=== PATIENT | male | born 1985 | race Caucasian/White ===

== ENCOUNTER 2018-10-18 22:13 | Emergency (ER) | payer OTHER ==
[2018-10-18 23:44] LABS: ABSOLUTE EOSINOPHILS # (AUTO) 0.1 10^3/uL (0.0-0.6); ABSOLUTE LYMPHOCYTES (AUTO) 2.9 10^3/uL (0.5-4.7); ABSOLUTE MONOCYTES (AUTO) 0.6 10^3/uL (0.1-1.4); ABSOLUTE NEUT (AUTO) 3.8 10^3/uL (1.7-8.2); BASOPHILS % (AUTO) 0.6 % (0-2); EOSINOPHILS % (AUTO) 1.5 % (0-6); HEMATOCRIT 45.8 % (37.9-51.0); LYMPHOCYTES % (AUTO) 39.2 % (13-45); MEAN CORPUSCULAR HEMOGLOBIN 29.1 pg (27.0-33.4); MEAN CORPUSCULAR VOLUME 83 fl (80-97); MONOCYTES % (AUTO) 7.4 % (3-13); PLATELET COUNT 277 10^3/uL (150-450); RED CELL DISTRIBUTION WIDTH 13.6 % (11.5-14.0); SEGMENTED NEUTROPHILS % (AUTO) 51.3 % (42-78); TOTAL CELLS COUNTED % (AUTO) 100 %; WHITE BLOOD COUNT 7.5 10^3/uL (4.0-10.5)
[2018-10-19 00:03] LABS: ALANINE AMINOTRANSFERASE 37 U/L (21-72); ALBUMIN 4.8 g/dL (3.5-5.0); ALKALINE PHOSPHATASE 57 U/L (38-126); ANION GAP 11 (5-19); ASPARTATE AMINO TRANSFERASE 23 U/L (17-59); BILIRUBIN,DIRECT 0.3 mg/dL (0.0-0.4); BILIRUBIN,TOTAL 0.4 mg/dL (0.2-1.3); BLOOD UREA NITROGEN 10 mg/dL (7-20); CALCIUM 9.8 mg/dL (8.4-10.2); CARBON DIOXIDE 30 mmol/L (22-30); CHLORIDE 102 mmol/L (98-107); GLUCOSE 110 mg/dL (75-110); POTASSIUM 3.3 mmol/L (3.6-5.0); SODIUM 143.3 mmol/L (137-145); TOTAL PROTEIN 7.8 g/dL (6.3-8.2)
[2018-10-19 00:07] LABS: APPEARANCE,URINE CLEAR; BILIRUBIN,URINE NEGATIVE (NEGATIVE); COLOR,URINE STRAW; GLUCOSE, URINE NEGATIVE (NEGATIVE); KETONES,URINE NEGATIVE (NEGATIVE); LEUKOCYTE ESTERASE,URINE NEGATIVE (NEGATIVE); NITRITE,URINE NEGATIVE (NEGATIVE); PROTEIN,URINE NEGATIVE (NEGATIVE); URINE SPECIFIC GRAVITY 1.004; UROBILINOGEN,URINE NEGATIVE mg/dL (<2.0)
--- NOTE | 2018-10-19 00:58 | ER Document Report ---
ED General - General Chief Complaint: Upper Abdominal Pain Stated Complaint: ABDOMINAL PAIN Time Seen by Provider: 10/19/18 00:41 TRAVEL OUTSIDE OF THE [place] IN LAST 30 DAYS: No - HPI Notes: Patient is a 33-year-old gentleman comes into the emergency department for evaluation of abdominal pain. He points to the right upper quadrant and epigastric region. He states is been present intermittently for about a year. This episode is been present for a few months. He states it waxes and wanes in intensity. It is always worsened with food. Nothing seems to make it better. He had nausea but no emesis. He is also had loose stool. He states a few weeks ago he had a fever for a day or 2, but has not had one since then. He is still urinating. He denies any dysuria, urinary frequency. - Related Data Allergies/Adverse Reactions: No Known Allergies Allergy (Unverified 10/18/18 22:16) Past Medical History - General Information source: Patient - Social History Smoking Status: Former Smoker Chew tobacco use (# tins/day): Yes Smoking Education Provided: Yes Frequency of alcohol use: None Drug Abuse: None Family History: CAD, DM, Hypertension Patient has suicidal ideation: No Patient has homicidal ideation: No Renal/ Medical History: Denies: Hx Peritoneal Dialysis Psychiatric Medical History: Reports: Hx Attention Deficit Hyperactivity Disorder, Hx Bipolar Disorder Past Surgical History: Reports: Hx Herniorrhaphy, Hx Orthopedic Surgery Review of Systems - Review of Systems Constitutional: See HPI EENT: No symptoms reported Cardiovascular: No symptoms reported Respiratory: No symptoms reported Gastrointestinal: See HPI Genitourinary: No symptoms reported Musculoskeletal: No symptoms reported Skin: No symptoms reported Neurological/Psychological: No symptoms reported Physical Exam - Vital signs Vitals: Temp Pulse Resp BP Pulse Ox 98.6 F 89 17 145/89 H 98 10/18/18 22:52 10/18/18 22:52 10/18/18 22:52 10/18/18 22:52 10/18/18 22:52 - Notes Notes: Vital signs reviewed, please refer to chart. Patient is normocephalic, atraumatic. Pupils equal round, reactive to light. Neck is supple without meningismus. Heart is regular rate and rhythm. Lungs are clear to auscultation bilaterally. Abdomen is soft, mild right upper quadrant and epigastric tenderness to palpation without rebound or guarding. Normoactive bowel sounds throughout. Extremities without cyanosis, clubbing, edema. Peripheral pulses are equal. Skin is warm and dry. Patient is awake, alert, neurological exam is nonfocal. Course - Re-evaluation Re-evalutation: 10/19/18 01:00 Patient presents to the emergency department for evaluation. He has had this pain off and on for a year. He has no fever. He has no leukocytosis. His laboratory investigations are entirely unremarkable. Despite being on omeprazole, he has never seen gastroenterology. I strongly urged this patient to seek out referral. He states he has an appointment later on this month with his primary care physician at the [facility]. He states he is seeking out evaluation of his gallbladder as well as the stomach. I encouraged him to do so. At this point he is stable. He is showing no signs of acute cholecystitis, no signs of bleeding ulcer. He is encouraged to keep a food diary, evaluate how certain foods affect his pain. He is amenable to this plan. He is to follow-up with the [facility], return to the ED with worsening or new concerning symptoms of any sort. - Vital Signs Vital signs: Temp Pulse Resp BP Pulse Ox 98.6 F 89 17 145/89 H 98 10/18/18 22:52 10/18/18 22:52 10/18/18 22:52 10/18/18 22:52 10/18/18 22:52 - Laboratory Result Diagrams: 10/18/18 23:30 10/18/18 23:30 Laboratory results interpreted by me: 10/18/18 23:30 Potassium 3.3 L Discharge - Discharge Clinical Impression: Right upper quadrant abdominal pain Condition: Stable Disposition: HOME, SELF-CARE Instructions: Abdominal Pain ([facility]) Additional Instructions: You need further evaluation for abdominal pain. You should be evaluated by a primer assembler with endoscopy. You should also be evaluated with a right upper quadrant ultrasound to evaluate for gallbladder disease. Keep a food diary as discussed. Keep notes on how certain foods affect her pain. If you develop fevers, vomiting, or worsening or new concerning symptoms of any sort, return immediately to the emergency department for reevaluation.
[2018-10-19 01:28] VITALS: BP 142/90
== END 2018-10-19 01:28 | disposition home or self-care (01) ==
LOC: ER 22:13
DX: R10.11 Right upper quadrant pain (principal); R10.13 Epigastric pain; R11.0 Nausea; R19.7 Diarrhea, unspecified; Z87.891 Personal history of nicotine dependence
CPT/HCPCS: 36415; 80053; 81001; 83690; 85025; 99284

== ENCOUNTER 2018-10-22 14:15 | Emergency (ER) | payer OTHER ==
--- NOTE | 2018-10-22 14:34 | ER Document Report ---
ED Medical Screen (RME) - General Chief Complaint: Accidental Overdose Stated Complaint: POSSIBLE OVERDOSE Time Seen by Provider: 10/22/18 14:27 Primary Care Provider: JOSEMANUEL MARIE DO [Primary Care Provider] - Follow up as needed TRAVEL OUTSIDE OF THE [place] IN LAST 30 DAYS: No - HPI Notes: 10/22/18 14:31 Patient is a 33-year-old male who presents emergency department with concern of possibly taking an extra dose of his Wellbutrin and carbamazepine today. He believes he may have taken his morning dose as well as taking a dose again at 12 PM. Patient states that he is currently asymptomatic and is feeling well. No concerns or complaints otherwise. He did call poison control who directed him to the emergency department. Our charge nurse also spoke with poison control and has recommendations to follow. Denies FULTON, fever, neck pain, URI, CP, palpitations, syncope, SOB, Abd pain, or rash. I have treated and performed a rapid initial assessment of this patient. A co mprehensive ED assessment and evaluation of the patient, analysis of test results and completion of medical decision making process will be conducted by additional ED providers. PHYSICAL EXAMINATION: GENERAL: Well-appearing, well-nourished and in no acute distress. A&Ox4. Answers questions appropriately. LUNGS: Breath sounds clear to auscultation bilaterally and equal. No wheezes rales or rhonchi. HEART: Regular rate and rhythm without murmurs, rubs, gallops. ABDOMEN: Soft, nondistended abdomen. No guarding, no rebound. Normal bowel sounds present. No CVA tenderness bilaterally. Nontender Extremities: No cyanosis, clubbing, or edema b/l. NEUROLOGICAL: Normal speech, normal gait. Cranial nerves grossly intact PSYCH: Normal mood, normal affect. - Related Data Allergies/Adverse Reactions: No Known Allergies Allergy (Verified 10/22/18 14:17) Past Medical History Renal/ Medical History: Denies: Hx Peritoneal Dialysis Psychiatric Medical History: Reports: Hx Attention Deficit Hyperactivity Disorder, Hx Bipolar Disorder Past Surgical History: Reports: Hx Herniorrhaphy, Hx Orthopedic Surgery Physical Exam - Vital signs Vitals: Temp Pulse Resp BP Pulse Ox 98.5 F 96 16 126/92 H 96 10/22/18 14:23 10/22/18 14:23 10/22/18 14:23 10/22/18 14:23 10/22/18 14:23 Course - Vital Signs Vital signs: Temp Pulse Resp BP Pulse Ox 98.5 F 96 16 126/92 H 96 10/22/18 14:23 10/22/18 14:23 10/22/18 14:23 10/22/18 14:23 10/22/18 14:23 Doctor's Discharge - Discharge Referrals: JOSEMANUEL MARIE DO [Primary Care Provider] - Follow up as needed
[2018-10-22] MEDS ORDERED: ACTIVATED CHARCOAL 25 GM BOTTLE PO ONE (14:47)
[2018-10-22 15:08] LABS: ABSOLUTE EOSINOPHILS # (AUTO) 0.1 10^3/uL (0.0-0.6); ABSOLUTE LYMPHOCYTES (AUTO) 2.3 10^3/uL (0.5-4.7); ABSOLUTE MONOCYTES (AUTO) 0.6 10^3/uL (0.1-1.4); ABSOLUTE NEUT (AUTO) 4.6 10^3/uL (1.7-8.2); BASOPHILS % (AUTO) 0.4 % (0-2); EOSINOPHILS % (AUTO) 0.8 % (0-6); HEMATOCRIT 43.7 % (37.9-51.0); HEMOGLOBIN 15.5 g/dL (13.5-17.0); LYMPHOCYTES % (AUTO) 30.4 % (13-45); MEAN CORPUSCULAR HEMOGLOBIN 29.4 pg (27.0-33.4); MEAN CORPUSCULAR HGB CONC 35.5 g/dL (32.0-36.0); MEAN CORPUSCULAR VOLUME 83 fl (80-97); MONOCYTES % (AUTO) 7.8 % (3-13); PLATELET COUNT 281 10^3/uL (150-450); RED BLOOD COUNT 5.28 10^6/uL (4.35-5.55); SEGMENTED NEUTROPHILS % (AUTO) 60.6 % (42-78); TOTAL CELLS COUNTED % (AUTO) 100 %; WHITE BLOOD COUNT 7.5 10^3/uL (4.0-10.5)
[2018-10-22 15:19] LABS: APPEARANCE,URINE CLEAR; BILIRUBIN,URINE NEGATIVE (NEGATIVE); COLOR,URINE YELLOW; GLUCOSE, URINE NEGATIVE (NEGATIVE); KETONES,URINE NEGATIVE (NEGATIVE); LEUKOCYTE ESTERASE,URINE NEGATIVE (NEGATIVE); NITRITE,URINE NEGATIVE (NEGATIVE); PROTEIN,URINE NEGATIVE (NEGATIVE); URINE SPECIFIC GRAVITY 1.013; UROBILINOGEN,URINE NEGATIVE mg/dL (<2.0)
[2018-10-22 15:40] LABS: ALANINE AMINOTRANSFERASE 27 U/L (21-72); ALBUMIN 4.9 g/dL (3.5-5.0); ALKALINE PHOSPHATASE 57 U/L (38-126); ANION GAP 10 (5-19); ASPARTATE AMINO TRANSFERASE 21 U/L (17-59); BILIRUBIN,DIRECT 0.2 mg/dL (0.0-0.4); BILIRUBIN,TOTAL 0.4 mg/dL (0.2-1.3); BLOOD UREA NITROGEN 16 mg/dL (7-20); CALCIUM 10.1 mg/dL (8.4-10.2); CARBON DIOXIDE 29 mmol/L (22-30); CHLORIDE 103 mmol/L (98-107); GLUCOSE 89 mg/dL (75-110); POTASSIUM 3.7 mmol/L (3.6-5.0); SODIUM 142.2 mmol/L (137-145)
[2018-10-22 15:42] LABS: URINE AMPHETAMINES SCREEN NEGATIVE; URINE BARBITURATES SCREEN NEGATIVE; URINE BENZODIAZEPINES SCREEN NEGATIVE; URINE COCAINE SCREEN NEGATIVE; URINE MARIJUANA (THC) SCREEN NEGATIVE; URINE METHADONE SCREEN NEGATIVE; URINE PHENCYCLIDINE SCREEN NEGATIVE
--- NOTE | 2018-10-22 15:58 | EKG REPORT ---
SEVERITY:- OTHERWISE NORMAL ECG - SINUS RHYTHM BORDERLINE LEFT AXIS DEVIATION : Confirmed by: Albert Burks MD 22-Oct-2018 15:57:35
--- NOTE | 2018-10-22 19:35 | ER Document Report ---
Entered by JACLYN YOUNG SCRIBE 10/22/18 1459 Acting as scribe for:FARA SHORT MD ED General - General Mode of Arrival: Ambulatory Information source: Patient TRAVEL OUTSIDE OF THE [place] IN LAST 30 DAYS: No <FARA SHORT - Last Filed: 10/22/18 19:40> <TG PEDRO Ajith - Last Filed: 10/23/18 05:40> - General Chief Complaint: Accidental Overdose Stated Complaint: POSSIBLE OVERDOSE Time Seen by Provider: 10/22/18 14:27 Primary Care Provider: JOSEMANUEL MARIE DO [NO LOCAL MD] - Follow up in 3-5 days Notes: Patient is a 33 year old male presenting to the emergency department due to a possible overdose. Patient states he accidentally took 2 doses of Wellbutrin and Carbamazepine at 12pm. He states he proceeded to call poison control who instructed he come to the emergency department. Patient states he is currently asymptomatic. (JACLYN YOUNG) Patient is a 33 year old male presenting to the emergency department due to a possible overdose. Patient states he accidentally took 2 doses of Wellbutrin and Carbamazepine at 12pm. He states he proceeded to call poison control who instructed he come to the emergency department. Patient states he is currently asymptomatic. The patient states he could not remember for certain if he had taken his medication at 7 this morning like he usually does. He states that his daughter told him that he did take it, but he was not sure so he took his dosing at 12 noon. About 2 hours later he was concerned so he called poison control and was told to come to the emergency room. Poison control called here and recommended activated charcoal, and to watch the patient for 18 hours--watch for prolonged QTC, follow potassium and magnesium levels to keep them in the upper end of normal. He would need a normally KG prior to medical clearance for discharge. (FARA SHORT) - Related Data Allergies/Adverse Reactions: No Known Allergies Allergy (Verified 10/22/18 14:17) Past Medical History - General Information source: Patient - Social History Smoking Status: Former Smoker Cigarette use (# per day): No Chew tobacco use (# tins/day): No Smoking Education Provided: No Frequency of alcohol use: None Drug Abuse: None Lives with: Family Family History: CAD, DM, Hypertension Patient has suicidal ideation: No Patient has homicidal ideation: No Psychiatric Medical History: Reports: Hx Attention Deficit Hyperactivity Disorder, Hx Bipolar Disorder Past Surgical History: Reports: Hx Herniorrhaphy, Hx Orthopedic Surgery <FARA SHORT - Last Filed: 10/22/18 19:40> Review of Systems - Review of Systems Constitutional: See HPI EENT: No symptoms reported Cardiovascular: No symptoms reported Respiratory: No symptoms reported Gastrointestinal: No symptoms reported Genitourinary: No symptoms reported Male Genitourinary: No symptoms reported Musculoskeletal: No symptoms reported Skin: No symptoms reported Hematologic/Lymphatic: No symptoms reported Neurological/Psychological: No symptoms reported -: Yes All other systems reviewed and negative <FARA SHORT - Last Filed: 10/22/18 19:40> Physical Exam <FARA SHORT - Last Filed: 10/22/18 19:40> - Vital signs Vitals: Temp Pulse Resp BP Pulse Ox 98.5 F 96 16 126/92 H 96 10/22/18 14:23 10/22/18 14:23 10/22/18 14:23 10/22/18 14:23 10/22/18 14:23 - Notes Notes: GENERAL: Alert, interacts well. No acute distress. HEAD: Normocephalic, atraumatic. EYES: Pupils equal, round, and reactive to light. Extraocular movements intact. ENT: Oral mucosa moist, tongue midline. NECK: Full range of motion. Supple. Trachea midline. LUNGS: Clear to auscultation bilaterally, no wheezes, rales, or rhonchi. No respiratory distress. HEART: Regular rate and rhythm. No murmurs, gallops, or rubs. ABDOMEN: Soft, non-tender. Non-distended. Bowel sounds present in all 4 estephania drants. No guarding, rigidity, or rebound. EXTREMITIES: Moves all 4 extremities spontaneously. No edema, radial and dorsalis pedis pulses 2/4 bilaterally. No cyanosis. NEUROLOGICAL: Alert and oriented x3. Normal speech. PSYCH: Normal affect, normal mood. SKIN: Warm, dry, normal turgor. No rashes or lesions noted. (JACLYN YOUNG) GENERAL: Alert, interacts well. No acute distress. HEAD: Normocephalic, atraumatic. EYES: Pupils equal, round, and reactive to light. Extraocular movements intact. ENT: Oral mucosa moist, tongue midline. NECK: Full range of motion. Supple. Trachea midline. LUNGS: Clear to auscultation bilaterally, no wheezes, rales, or rhonchi. No respiratory distress. HEART: Regular rate and rhythm. No murmurs, gallops, or rubs. ABDOMEN: Soft, non-tender. Non-distended. Bowel sounds present in all 4 quadrants. No guarding, rigidity, or rebound. EXTREMITIES: Moves all 4 extremities spontaneously. No edema, radial and dorsalis pedis pulses 2/4 bilaterally. No cyanosis. NEUROLOGICAL: Alert and oriented x3. Normal speech. PSYCH: Normal affect, normal mood. SKIN: Warm, dry, normal turgor. No rashes or lesions noted. (FARA SHORT) Course - Laboratory Result Diagrams: 10/22/18 14:46 10/22/18 14:46 - EKG Interpretation by Me EKG shows normal: Sinus rhythm, [place], Intervals, QRS Complexes, ST-T Waves Rate: Normal - 97 Rhythm: NSR [place]/QRS: Left axis deviation - Transfer of Care Care transferred to following provider: Dr. Palacios <FARA SHORT - Last Filed: 10/22/18 19:40> - Laboratory Result Diagrams: 10/22/18 14:46 10/23/18 02:32 <TG PEDRO - Last Filed: 10/23/18 05:40> - Re-evaluation Re-evalutation: 10/22/18 19:15 I did discuss the case at length with poison control. They recommended repeating the chemistries and magnesium and EKG every 6 hours. I have put in orders to do this at 9 PM. It will need to be reordered for 3 AM. (FARA HAN) - Vital Signs Vital signs: Temp Pulse Resp BP Pulse Ox 98.5 F 96 16 118/88 H 98 10/22/18 14:23 10/22/18 14:23 10/23/18 02:01 10/23/18 02:01 10/23/18 02:01 - Laboratory Laboratory results interpreted by me: 10/23/18 02:32 Potassium 3.5 L - Transfer of Care Notes: 10/22/18 19:16 Patient possibly took an extra dose of his Wellbutrin and Tegretol at noon today. Poison control recommends q. 6-hour chemistries including magnesium and EKGs. They recommend pushing the potassium and magnesium to upper limits of nor mal if the QTC is greater than 500. Recommend benzodiazepines for seizures. They recommend the patient be monitored for 18 hours from the time of ingestion, which would be until 6 AM tomorrow morning. He should have a normal EKG prior to being medically cleared and discharged tomorrow morning. (FARA SHORT) Discharge <FARA SHORT - Last Filed: 10/22/18 19:40> <TG PEDRO - Last Filed: 10/23/18 05:40> - Discharge Clinical Impression: Overdose Qualifiers: Encounter type: initial encounter Injury intent: accidental or unintentional Qualified Code(s): T50.901A - Poisoning by unspecified drugs, medicaments and biological substances, accidental (unintentional), initial encounter Condition: Stable Disposition: HOME, SELF-CARE Instructions: Overdose ([facility]) Additional Instructions: Please return to the emergency department if you have any worsening, or concern of your symptoms. Please return to the emergency department if you develop chest pain, difficulty breathing, severe abdominal pain, or ongoing vomiting. Please follow-up with your primary care physician in 2-3 days and any other recommended physicians. If prescribed, take all medications as directed. If you have any questions or concerns do not hesitate to return the emergency department for evaluation. Referrals: JOSEMANUEL MARIE DO [NO LOCAL MD] - Follow up in 3-5 days Scribe Attestation: 10/22/18 15:50 I personally performed the services described in the documentation, reviewed and edited the documentation which was dictated to the scribe in my presence, and it accurately records my words and actions. (FARA SHORT) I personally performed the services described in the documentation, reviewed and edited the documentation which was dictated to the scribe in my presence, and it accurately records my words and actions.
--- NOTE | 2018-10-22 21:07 | EKG REPORT ---
SEVERITY:- BORDERLINE ECG - SINUS RHYTHM BORDERLINE LEFT AXIS DEVIATION NONSPECIFIC ST-T CHANGES- INFERIOR LEADS : Confirmed by: Albert Burks MD 22-Oct-2018 21:06:31
[2018-10-22 21:19] LABS: ANION GAP 12 (5-19); BLOOD UREA NITROGEN 13 mg/dL (7-20); CALCIUM 9.6 mg/dL (8.4-10.2); CARBON DIOXIDE 27 mmol/L (22-30); CHLORIDE 102 mmol/L (98-107); GLUCOSE 94 mg/dL (75-110); POTASSIUM 3.7 mmol/L (3.6-5.0); SODIUM 140.8 mmol/L (137-145)
[2018-10-23 03:04] LABS: ANION GAP 9 (5-19); BLOOD UREA NITROGEN 14 mg/dL (7-20); CALCIUM 9.7 mg/dL (8.4-10.2); CARBON DIOXIDE 29 mmol/L (22-30); CHLORIDE 105 mmol/L (98-107); GLUCOSE 101 mg/dL (75-110); POTASSIUM 3.5 mmol/L (3.6-5.0); SODIUM 142.5 mmol/L (137-145)
--- NOTE | 2018-10-23 05:40 | ER Document Report ---
Doctor's Note Notes: 10/23/18 05:37 Patient seen and evaluated. He is resting comfortably in no acute distress. He would like to be discharged home. He is currently asymptomatic. His ingestion was accidental and he has no suicidal ideation currently. Patient's heart rate is 74, blood pressure 104/76. His lab work at 3 AM showed normal magnesium and potassium levels. EKG at that time had a normal QTC of 418. EKG just prior to discharge also shows no QT prolongation. patient has remained stable and will be discharged home. EKG interpretations by myself 0247: Normal sinus rhythm, rate 74, normal axis, QTC 418, no ectopy 0540: Normal sinus rhythm, rate 67, normal axis, no ectopy, QTC 427
[2018-10-23 06:03] VITALS: BP 122/90
--- NOTE | 2018-10-23 09:39 | EKG REPORT ---
SEVERITY:- BORDERLINE ECG - SINUS RHYTHM BORDERLINE LEFT AXIS DEVIATION NONSPECIFIC ST-T CHANGES- INFERIOR LEADS : Confirmed by: Albert Burks MD 23-Oct-2018 09:39:00
--- NOTE | 2018-10-23 09:40 | EKG REPORT ---
SEVERITY:- BORDERLINE ECG - SINUS RHYTHM BORDERLINE LEFT AXIS DEVIATION NONSPECIFIC ST-T CHANGES- INFERIOR LEADS : Confirmed by: Albert Burks MD 23-Oct-2018 09:39:57
--- NOTE | 2018-10-23 09:40 | EKG REPORT ---
SEVERITY:- BORDERLINE ECG - SINUS RHYTHM BORDERLINE LEFT AXIS DEVIATION NONSPECIFIC ST-T CHANGES- INFERIOR LEADS : Confirmed by: Albert Burks MD 23-Oct-2018 09:40:24
== END 2018-10-23 06:08 | disposition home or self-care (01) ==
LOC: ER 14:15
DX: T43.291A Poisoning by other antidepressants, accidental (unintentional), initial encounter (principal); X58.XXXA Exposure to other specified factors, initial encounter
CPT/HCPCS: 93005 ×2; 99284; 36415; 83735; 80156; 85025; 80048; 80053; 81001; 80307; 93010 ×2; J3490

== ENCOUNTER 2019-01-03 04:39 | Emergency (ER) | payer OTHER ==
[2019-01-03 05:23] LABS: APPEARANCE,URINE CLEAR; BILIRUBIN,URINE NEGATIVE (NEGATIVE); COLOR,URINE YELLOW; GLUCOSE, URINE NEGATIVE (NEGATIVE); KETONES,URINE NEGATIVE (NEGATIVE); LEUKOCYTE ESTERASE,URINE NEGATIVE (NEGATIVE); NITRITE,URINE NEGATIVE (NEGATIVE); PROTEIN,URINE NEGATIVE (NEGATIVE); URINE SPECIFIC GRAVITY 1.012; UROBILINOGEN,URINE NEGATIVE mg/dL (<2.0)
[2019-01-03 08:13] LABS: HEMATOCRIT 40.7 % (37.9-51.0); HEMOGLOBIN 14.2 g/dL (13.5-17.0); MEAN CORPUSCULAR HGB CONC 34.9 g/dL (32.0-36.0); MEAN CORPUSCULAR VOLUME 83 fl (80-97); PLATELET COUNT 264 10^3/uL (150-450); RED BLOOD COUNT 4.89 10^6/uL (4.35-5.55); RED CELL DISTRIBUTION WIDTH 13.8 % (11.5-14.0); WHITE BLOOD COUNT 6.9 10^3/uL (4.0-10.5)
--- NOTE | 2019-01-03 08:24 | ER Document Report ---
ED General - General Chief Complaint: Urinary Problem Stated Complaint: URNARY COMPLAINTS/BODY ACHES Time Seen by Provider: 01/03/19 08:14 Primary Care Provider: MARK,MADELYN [Primary Care Provider] - Follow up in 3-5 days Information source: Patient TRAVEL OUTSIDE OF THE [place] IN LAST 30 DAYS: No - HPI Notes: 33-year-old male to the emergency department with complaints of dark urine, all of muscle cramping has been ongoing for several weeks. That he usually does not drink while he is working and then will try to catch up when he gets home. States that he is recently been using a lot of soda as well with caffeine in it. Denies any fevers, chills, chest pain, shortness of breath, abdominal pain, nausea, vomiting, leg swelling. He also denies recent travel, leg swelling, history of DVT, history of malignancy. He has not tried anything for his muscle cramps. - Related Data Allergies/Adverse Reactions: No Known Allergies Allergy (Verified 10/22/18 14:17) Past Medical History - General Information source: Patient - Social History Smoking Status: Never Smoker Chew tobacco use (# tins/day): No Frequency of alcohol use: Occasional Drug Abuse: None Lives with: Family Family History: CAD, DM, Hypertension Patient has suicidal ideation: No Patient has homicidal ideation: No Renal/ Medical History: Denies: Hx Peritoneal Dialysis Psychiatric Medical History: Reports: Hx Attention Deficit Hyperactivity Disorder, Hx Bipolar Disorder Past Surgical History: Reports: Hx Herniorrhaphy, Hx Orthopedic Surgery Review of Systems - Review of Systems Constitutional: denies: Chills, Fever EENT: No symptoms reported Cardiovascular: denies: Chest pain, Palpitations, Heart racing, Dizziness, Lightheaded, Edema Respiratory: denies: Cough, Short of breath Gastrointestinal: denies: Abdominal pain, Diarrhea, Nausea, Vomiting Genitourinary: Other - Dark urine. denies: Discharge, Frequency, Flank pain, Hematuria, Incontinence, Pain, Urgency, Retention Musculoskeletal: Muscle pain, Other - Muscle cramping Neurological/Psychological: No symptoms reported -: Yes All other systems reviewed and negative Physical Exam - Vital signs Vitals: Temp Pulse Resp BP Pulse Ox 98.5 F 65 16 133/87 H 100 01/03/19 04:43 01/03/19 04:43 01/03/19 04:43 01/03/19 04:43 01/03/19 04:43 Interpretation: Normal - General General appearance: Appears well, Alert - HEENT Head: Normocephalic, Atraumatic Eyes: Normal Pupils: PERRL - Respiratory Respiratory status: No respiratory distress Chest status: Nontender Breath sounds: Normal Chest palpation: Normal - Cardiovascular Rhythm: Regular Heart sounds: Normal auscultation Murmur: No - Abdominal Inspection: Normal Distension: No distension Bowel sounds: Normal Tenderness: Nontender Organomegaly: No organomegaly - Back Back: Normal, Nontender - Extremities General upper extremity: Normal inspection, Nontender, Normal color, Normal ROM, Normal temperature General lower extremity: Normal inspection, Nontender, Normal color, Normal ROM, Normal temperature, Normal weight bearing. No: Matthew's sign - Neurological Neuro grossly intact: Yes Cognition: Normal Orientation: AAOx4 Jh Coma Scale Eye Opening: Spontaneous Jh Coma Scale Verbal: Oriented Jh Coma Scale Motor: Obeys Commands [place] Coma Scale Total: 15 Speech: Normal Motor strength normal: LUE, RUE, LLE, RLE Sensory: Normal - Psychological Associated symptoms: Normal affect, Normal mood - Skin Skin Temperature: Warm Skin Moisture: Dry Skin Color: Normal Course - Vital Signs Vital signs: Temp Pulse Resp BP Pulse Ox 97.8 F 64 18 126/91 H 100 01/03/19 08:31 01/03/19 08:31 01/03/19 08:31 01/03/19 08:31 01/03/19 08:31 - Laboratory Result Diagrams: 01/03/19 07:52 01/03/19 07:52 Laboratory results interpreted by me: 01/03/19 07:52 Carbon Dioxide 31 H - Transfer of Care Notes: 01/03/19 Impression: Muscle Cramping. Patient does not want to wait for lab work to return. He has a reassuring physical exam. We will plan on calling him once results return. plan will be to have him follow with primary care physician. Encouraged to hydrate. Will send home with muscle relaxant. Patient agrees with plan. Urged to return if symptoms worsen. [place] for DVT risk, no leg edema 01/03/19 did call patient and update about lab results. Advised of reassuring renal function, electrolytes, hemoglobin, hematocrit, white blood cell count. We will have him follow with primary care for further management. Patient agrees with plan Discharge - Discharge Clinical Impression: Muscle cramps Condition: Good Disposition: HOME, SELF-CARE Instructions: Leg Cramps ([facility]) Additional Instructions: Follow up with primary care in the next week. Take medicines as prescribed. Push fluids. Return if worse. Prescriptions: Methocarbamol [Robaxin 500 mg Tablet] 500 mg PO QID #15 tablet Referrals: [facility] [Primary Care Provider] - Follow up in 3-5 days
[2019-01-03 08:31] LABS: ALANINE AMINOTRANSFERASE 23 U/L (21-72); ALBUMIN 4.6 g/dL (3.5-5.0); ALKALINE PHOSPHATASE 57 U/L (38-126); ANION GAP 8 (5-19); ASPARTATE AMINO TRANSFERASE 18 U/L (17-59); BILIRUBIN,DIRECT 0.2 mg/dL (0.0-0.4); BILIRUBIN,TOTAL 0.4 mg/dL (0.2-1.3); BLOOD UREA NITROGEN 18 mg/dL (7-20); CALCIUM 9.5 mg/dL (8.4-10.2); CARBON DIOXIDE 31 mmol/L (22-30); CHLORIDE 102 mmol/L (98-107); CREATINE KINASE 81 U/L (55-170); GLUCOSE 100 mg/dL (75-110); POTASSIUM 4.2 mmol/L (3.6-5.0); SODIUM 141.1 mmol/L (137-145); TOTAL PROTEIN 7.5 g/dL (6.3-8.2)
[2019-01-03 08:33] VITALS: BP 126/91
== END 2019-01-03 08:34 | disposition home or self-care (01) ==
LOC: ER 04:39
DX: R25.2 Cramp and spasm (principal)
CPT/HCPCS: 36415; 80053; 81001; 82550; 85027; 99283

== ENCOUNTER 2019-01-08 05:22 | Emergency (ER) | payer OTHER ==
[2019-01-08 05:59] VITALS: BP 121/84
--- NOTE | 2019-01-08 06:34 | ER Document Report ---
ED General - General Chief Complaint: Jaw Pain Stated Complaint: NECK PAIN Time Seen by Provider: 01/08/19 06:06 Primary Care Provider: MADELYN FLORES [Primary Care Provider] - Follow up as needed Information source: Patient Notes: 34-year-old male who woke up today with the onset of some pain to the left lateral neck as well as underneath the angle of the left jaw. He states he felt no swelling. He did not looking the mirror. He states it was transient. He denies any sore throat or difficulty swallowing. He denies any cough or shortness of breath. He denies any and all weakness or numbness to the upper or lower extremities. No headache or blurry vision. Denies any pain to the dental region or mouth. He denies any symptomatology at this time. TRAVEL OUTSIDE OF THE [place] IN LAST 30 DAYS: No - Related Data Allergies/Adverse Reactions: No Known Allergies Allergy (Verified 10/22/18 14:17) Past Medical History - Social History Smoking Status: Never Smoker Frequency of alcohol use: None Drug Abuse: None Family History: CAD, DM, Hypertension Patient has suicidal ideation: No Patient has homicidal ideation: No Renal/ Medical History: Denies: Hx Peritoneal Dialysis Psychiatric Medical History: Reports: Hx Attention Deficit Hyperactivity Disorder, Hx Bipolar Disorder Past Surgical History: Reports: Hx Herniorrhaphy, Hx Orthopedic Surgery Review of Systems - Review of Systems Constitutional: denies: Fever EENT: denies: Eye discharge, Blurred vision, Ear pain, Nose pain, Nose congestion, Nose discharge Cardiovascular: denies: Chest pain, Palpitations Respiratory: denies: Short of breath Gastrointestinal: denies: Vomiting Musculoskeletal: denies: Leg swelling Skin: denies: Rash Neurological/Psychological: Other -: Yes All other systems reviewed and negative Physical Exam - Vital signs Vitals: Temp Pulse Resp BP Pulse Ox 97.4 F 69 16 134/91 H 98 01/08/19 05:28 01/08/19 05:28 01/08/19 05:28 01/08/19 05:28 01/08/19 05:28 Notes: Reviewed vital signs and nursing note as charted by RN. CONSTITUTIONAL: Alert and oriented and responds appropriately to questions. Well-appearing; well-nourished HEAD: Normocephalic; atraumatic EYES: PERRL; Conjunctivae clear, sclerae non-icteric ENT: Normal nose; no facial swelling or erythema; no tenderness to palpation of the sinuses; moist mucous membranes; no obvious dental lesions or dental decay; no mastoid tenderness or swelling; no pain to palpation of the teeth or angles of the jaw; pharynx without lesions noted NECK: Supple without meningismus; minimally tender to the left lateral scalene muscles with no swelling, erythema, or carotid bruits present; no anterior or posterior cervical lymphadenopathy, no thyroid masses CARD: Regular rate and rhythm; no murmurs; symmetric distal pulses RESP: Normal chest excursion without splinting or tachypnea; breath sounds clear and equal bilaterally BACK: The back appears normal and is non-tender to palpation EXT: Normal ROM in all joints; non-tender to palpation; no edema SKIN: No acute lesions noted NEURO: CN 2-12 intact; 5/5 bilateral upper and lower extremity strength with sensation intact to light touch Course - Re-evaluation Re-evalutation: 01/08/19 06:32 Given the history and physical examination I have considered multiple etiologies for the patient's transient pain. Patient has no facial swelling. No cervical lymphadenopathy. No mastoid tenderness or swelling. No tympanic membrane lesions. No intraoral lesions present. No tenderness to the angle of the mandible. No malalignment or malocclusion. No thyromegaly or carotid bruits present. 5 out of 5 bilateral upper and lower extremity strength. Very low risk for cardiac etiology given the patient's age and past history. Given the patient's lack of symptomatology at this time, with some very mild left scalene/trapezius tenderness, with no focal neurological deficits, I will obtain an EKG. I do not believe that the patient currently requires any imaging or laboratory work. Vital signs are stable. If the EKG is unremarkable, patient will be discharged home with strict return precautions. I have gone over the return precautions with the patient and he understands the importance of follow-up. 01/08/19 07:13 EKG shows a heart rate of 65, normal sinus rhythm, normal axis, no ST elevation or depression. Patient still denies any pain to the face of the neck. Patient still denies any chest pain or shortness of breath. Patient has been monitored here for an hour and a half with no change in exam. Patient will be discharged home with strict return precautions. - Vital Signs Vital signs: Temp Pulse Resp BP Pulse Ox 97.4 F 69 19 121/84 96 01/08/19 05:28 01/08/19 05:28 01/08/19 05:51 01/08/19 05:51 01/08/19 05:51 Discharge - Discharge Clinical Impression: Neck strain Qualifiers: Encounter type: initial encounter Qualified Code(s): S16.1XXA - Strain of muscle, fascia and tendon at neck level, initial encounter Condition: Good Disposition: HOME, SELF-CARE Additional Instructions: Come back immediately with any return of pain, any facial or neck swelling, any difficulty breathing or swallowing, any chest pain or shortness of breath, any numbness or weakness to the extremities, or any other acute problems. Please follow-up with your primary doctor as we have discussed. Referrals: [facility] [[facility] - Follow up as needed
--- NOTE | 2019-01-08 09:30 | EKG REPORT ---
SEVERITY:- OTHERWISE NORMAL ECG - SINUS RHYTHM BORDERLINE LEFT AXIS DEVIATION : Confirmed by: Jes Rivero MD 08-Jan-2019 09:29:42
== END 2019-01-08 07:47 | disposition home or self-care (01) ==
LOC: ER 05:22
DX: S16.1XXA Strain of muscle, fascia and tendon at neck level, initial encounter (principal); R68.84 Jaw pain; X58.XXXA Exposure to other specified factors, initial encounter
CPT/HCPCS: 93005; 93010; 99283

== ENCOUNTER 2019-02-04 00:06 | Emergency (ER) | payer OTHER ==
--- NOTE | 2019-02-04 02:38 | ER Document Report ---
ED Medical Screen (RME) - General Chief Complaint: Chest Pain Stated Complaint: CHEST PAIN/LEFT ARM NUMBNESS Time Seen by Provider: 02/04/19 02:23 Primary Care Provider: MADELYN FLORES [Primary Care Provider] - Follow up as needed Notes: Patient is a 34-year-old male who presents to the emergency department with a chief complaint of chest pain and shortness of breath. He has had his symptoms on and off for the past few months. He states that it comes and goes, but for the last week he has constant pain. He was seen by his primary care provider about 3 months ago and was started on pantoprazole to help with how he was feeling. He states that he takes it every day and it is not helping. Former smoker. Exam: S1-S2. Breath sounds clear to auscultation bilaterally. I have greeted and performed a rapid initial assessment of this patient. A comprehensive ED assessment and evaluation of the patient, analysis of test results and completion of medical decision making process will be conducted by an additional ED providers. TRAVEL OUTSIDE OF THE [place] IN LAST 30 DAYS: No - Related Data Allergies/Adverse Reactions: No Known Allergies Allergy (Verified 10/22/18 14:17) Past Medical History Renal/ Medical History: Denies: Hx Peritoneal Dialysis Psychiatric Medical History: Reports: Hx Attention Deficit Hyperactivity Disorder, Hx Bipolar Disorder Past Surgical History: Reports: Hx Herniorrhaphy, Hx Orthopedic Surgery Physical Exam - Vital signs Vitals: Temp Pulse Resp BP Pulse Ox 98.2 F 95 16 133/83 H 96 02/04/19 00:27 02/04/19 00:27 02/04/19 00:27 02/04/19 00:27 02/04/19 00:27 Course - Vital Signs Vital signs: Temp Pulse Resp BP Pulse Ox 98.2 F 95 16 133/83 H 96 02/04/19 00:02/04/19 00:02/04/19 00:27 02/04/19 00:02/04/19 00:27 Doctor's Discharge - Discharge Referrals: MARK,MADELYN [Primary Care Provider] - Follow up as needed
[2019-02-04 02:52] LABS: ABSOLUTE EOSINOPHILS # (AUTO) 0.1 10^3/uL (0.0-0.6); ABSOLUTE LYMPHOCYTES (AUTO) 2.8 10^3/uL (0.5-4.7); ABSOLUTE MONOCYTES (AUTO) 0.7 10^3/uL (0.1-1.4); BASOPHILS % (AUTO) 0.5 % (0-2); EOSINOPHILS % (AUTO) 1.1 % (0-6); HEMATOCRIT 44.6 % (37.9-51.0); HEMOGLOBIN 15.2 g/dL (13.5-17.0); LYMPHOCYTES % (AUTO) 32.3 % (13-45); MEAN CORPUSCULAR HEMOGLOBIN 28.5 pg (27.0-33.4); MEAN CORPUSCULAR VOLUME 84 fl (80-97); MONOCYTES % (AUTO) 7.7 % (3-13); PLATELET COUNT 310 10^3/uL (150-450); RED BLOOD COUNT 5.33 10^6/uL (4.35-5.55); RED CELL DISTRIBUTION WIDTH 13.6 % (11.5-14.0); SEGMENTED NEUTROPHILS % (AUTO) 58.4 % (42-78); TOTAL CELLS COUNTED % (AUTO) 100 %; WHITE BLOOD COUNT 8.6 10^3/uL (4.0-10.5)
[2019-02-04 03:04] LABS: ALANINE AMINOTRANSFERASE 28 U/L (21-72); ALBUMIN 4.9 g/dL (3.5-5.0); ALKALINE PHOSPHATASE 54 U/L (38-126); ANION GAP 11 (5-19); ASPARTATE AMINO TRANSFERASE 23 U/L (17-59); BILIRUBIN,DIRECT 0.2 mg/dL (0.0-0.4); BILIRUBIN,TOTAL 0.3 mg/dL (0.2-1.3); BLOOD UREA NITROGEN 20 mg/dL (7-20); CALCIUM 9.4 mg/dL (8.4-10.2); CARBON DIOXIDE 27 mmol/L (22-30); CHLORIDE 105 mmol/L (98-107); CREATINE KINASE 78 U/L (55-170); GLUCOSE 128 mg/dL (75-110); TOTAL PROTEIN 7.7 g/dL (6.3-8.2)
--- NOTE | 2019-02-04 03:13 | RADIOLOGY REPORT (SQ) ---
EXAM DESCRIPTION: XR CHEST 1 VIEW COMPLETED DATE/TME: 02/04/2019 02:39 CLINICAL HISTORY: 34 years, Male, chest pain COMPARISON: None. NUMBER OF VIEWS: One TECHNIQUE: AP view of the chest LIMITATIONS: None. FINDINGS: The lungs are clear. The heart is normal in size. There is no pneumothorax or pleural effusion. There is no acute fracture. IMPRESSION: No acute cardiopulmonary abnormality. copyright 2010 [employer]- All Rights Reserved
[2019-02-04 03:14] LABS: CREATINE KINASE MB 0.97 ng/mL (<4.55)
[2019-02-04 03:15] LABS: TROPONIN I < 0.012 ng/mL
--- NOTE | 2019-02-04 05:03 | ER Document Report ---
ED Cardiac - General Chief Complaint: Chest Pain Stated Complaint: CHEST PAIN/LEFT ARM NUMBNESS Time Seen by Provider: 02/04/19 02:23 Primary Care Provider: MADELYN FLORES [Primary Care Provider] - 02/14/19 Notes: Patient is a 34-year-old male who presents to the emergency department with shortness of breath and chest pain. He states that has been on and off for the past few months. He decided to come to the emergency department because this past week his symptoms have continued. Patient states that he does have some numbness from time to time going from his chest to both his arms. Patient is currently on Protonix, carbamazepine, and Wellbutrin. Patient states that he is stressed all the time. TRAVEL OUTSIDE OF THE [place] IN LAST 30 DAYS: No - Related Data Allergies/Adverse Reactions: No Known Allergies Allergy (Verified 10/22/18 14:17) Past Medical History - Social History Smoking Status: Never Smoker Chew tobacco use (# tins/day): No Frequency of alcohol use: None Drug Abuse: None Family History: CAD, DM, Hypertension Patient has suicidal ideation: No Patient has homicidal ideation: No Renal/ Medical History: Denies: Hx Peritoneal Dialysis Psychiatric Medical History: Reports: Hx Attention Deficit Hyperactivity Disorder, Hx Bipolar Disorder Past Surgical History: Reports: Hx Herniorrhaphy, Hx Orthopedic Surgery Review of Systems - Review of Systems Notes: REVIEW OF SYSTEMS: CONSTITUTIONAL : Denies recent illness. Denies recent unintentional weight loss. Denies fever, chills, or sweats. EENT: Denies eye, ear, throat, or mouth pain, discharge, or symptoms. Denies nasal or sinus congestion. CARDIOVASCULAR: See HPI RESPIRATORY: Denies shortness of breath, cough, congestion, difficulty breathing, or wheezing. GASTROINTESTINAL: Denies nausea, vomiting, and diarrhea. Denies abdominal pain. Denies constipation. GENITOURINARY: Denies difficulty urinating, burning, blood in urine, urgency or frequency. MUSCULOSKELETAL: Denies neck and back pain. Denies joint pain or swelling. SKIN: Denies rash, itchiness, or lesions HEMATOLOGIC : Denies easy bruising or bleeding. LYMPHATIC: Denies swollen, painful, enlarged glands. NEUROLOGICAL: See HPI PSYCHIATRIC: See HPI All other systems reviewed and negative. Physical Exam - Vital signs Vitals: Temp Pulse Resp BP Pulse Ox 98.2 F 95 16 133/83 H 96 02/04/19 00:27 02/04/19 00:27 02/04/19 00:02/04/19 00:02/04/19 00:27 - Notes Notes: PHYSICAL EXAMINATION: GENERAL: Appears well, healthy, well-nourished, no acute distress. HEAD: Normocephalic, atraumatic. EYES: PERRL, conjunctiva normal, all extraocular movements intact, sclera nonicteric ENT: Moist mucous membranes. NECK: Supple, no noticeable swelling, redness, rash. Normal range of motion. LUNGS: Equal breath sounds bilaterally and clear to auscultation. No wheezes rales or rhonchi. CARDIOVASCULAR: S1-S2, regular rate, regular rhythm. Radial pulses 2+, normal. ABDOMEN: Normoactive bowel sounds. Soft, nontender, no guarding, no rebound tenderness, and no masses palpated. EXTREMITIES: Normal strength and range of motion, no pitting or edema. No cyanosis. NEUROLOGICAL: Moves all extremities upon command. Strength 5/5 in all extremities. PSYCH: Normal mood, normal affect. SKIN: Warm, dry. No rash, lesions, ulcerations noted. Normal skin turgor. Course - Re-evaluation Re-evalutation: 02/04/19 05:04 Patient is overall well-appearing. No acute distress noted. I saw the patient in triage. Patient's labs are all unremarkable at this time. Troponin is negative. Chest x-ray is normal. I reassessed the patient and I suspect the patient has muscle tension causing his on and off numbness and tingling. I will start him on Robaxin. [facility] I told him that I will give him a 10-day supply of Robaxin. If he feels it is working for him, he will have his Robaxin refilled by his primary care provider. I do not suspect patient has an acute MD, aortic dissection, or like any life-threatening etiology at this time. Follow-up precautions were given. Verbal discharge instructions were given to the patient. They verbalized understanding. They are stable for discharge. - Vital Signs Vital signs: Temp Pulse Resp BP Pulse Ox 98.4 F 85 20 128/78 H 99 02/04/19 07:02/04/19 07:02/04/19 07:19 07:27 02/04/19 07:27 - Laboratory Result Diagrams: 02/04/19 02:35 02/04/19 02:35 Laboratory results interpreted by me: 02/04/19 02:35 Glucose 128 H - EKG Interpretation by Me Additional EKG results interpreted by me: 02/04/19 Sinus rhythm. Rate 94. NM 164; QRS 82; QT 336; QTc 421. No ST elevations or depressions noted. Discharge - Discharge Clinical Impression: Numbness and tingling of both upper extremities Chest pain Qualifiers: Chest pain type: other chest pain Qualified Code(s): R07.89 - Other chest pain Condition: Stable Disposition: HOME, SELF-CARE Additional Instructions: You were seen today in the emergency department for numbness and tingling in both her arms and chest pain. Your work-up here in the emergency department was normal. Please follow-up with your primary care provider and if the medication works, ask them to have it refilled. Prescriptions: Methocarbamol [Robaxin 500 mg Tablet] 1,000 mg PO BID PRN #40 tablet PRN Reason: Referrals: [facility] [[facility]] - 02/14/19
[2019-02-04 07:28] VITALS: BP 128/78
--- NOTE | 2019-02-04 10:08 | EKG REPORT ---
SEVERITY:- OTHERWISE NORMAL ECG - SINUS RHYTHM S1,S2,S3 PATTERN : Confirmed by: Albert Burks MD 04-Feb-2019 10:08:11
== END 2019-02-04 07:27 | disposition home or self-care (01) ==
LOC: ER 00:06
DX: R07.89 Other chest pain (principal); R07.9 Chest pain, unspecified; R06.02 Shortness of breath; R20.0 Anesthesia of skin
CPT/HCPCS: 36415; 71045; 80053; 82550; 82553; 84484; 85025; 93005; 93010; 99285